=== PATIENT | female | born 1990 | race African-American/Black ===

== ENCOUNTER 2017-11-23 12:05 | Emergency (ER) | payer OTHER ==
[~2017-11-23] VITALS: Ht 165.1 cm; Wt 61.2 kg
[~2017-11-23 12:05] MED LIST: ALBUTEROL2.5 MG/0.1; BACTRIM DS TAB1 EACH PO; CLARITIN10 MG; FLOVENT HFA 1110 MCG; NAPROSYN500 MG; NORCO 5-325 TA1 EACH PO; PERCOCET 5-3251 EACH PO; PERCOCET PO; TRIAMCINOLONE A15 G1
[2017-11-23] MEDS ORDERED: AZITHROMYCIN 2250 MG PO (12:17)
[2017-11-23] MEDS ORDERED: IBUPROFEN 800800 M1 PO (12:18)
== END 2017-11-23 12:30 | disposition home or self-care (01) ==
LOC: ER 12:05
DX: J02.9 Acute pharyngitis, unspecified (principal); G43.909 Migraine, unspecified, not intractable, without status migrainosus; J45.909 Unspecified asthma, uncomplicated; Z20.818 Contact with and (suspected) exposure to other bacterial communicable diseases; Z88.1 Allergy status to other antibiotic agents